=== PATIENT | female | born 1945 | race Caucasian/White ===

== ENCOUNTER 2023-09-15 20:42 | Inpatient (IN) | payer OTHER, SELFPAY ==
[2023-09-15 17:20] VITALS: BP 110/66
[2023-09-15 17:57] VITALS: BMI 26.7
--- NOTE | 2023-09-15 18:02 | EDRN ---
Pt says she thinks she has a urinary infection because she has not been eating or drinking much lately. Pt saw her doctor on Monday and had outpatient blood work and urinalysis done on Monday but not all the results are back yet. Pt denies cp,
sob, abd pain, back pain, fever/chills/cough, weakness, dizziness, burning/pain with urination.
--- NOTE | 2023-09-15 19:23 | ED.GENMED ---
History of Present Illness
General
Chief Complaint: Urinary Symptoms
Source: patient
Exam Limitations: none
Time Seen by Provider: 09/15/23 19:14
Nursing documentation reviewed up to this point in time: agreed with
Travel History
Have you had any contact with someone who has COVID-19?: No
Do you have any symptoms of coronavirus? Fever > 100 degrees, chills, cough, shortness of breath, sore throat, loss of taste or smell, muscle aches, or headache?: No
History of Present Illness
History of Present Illness:
Patient presents to ED secondary to increased urinary frequency along with decreased appetite over the past 3 days. Patient had 1 vomiting episode today, along with diarrhea yesterday. Denies fever or chills. Denies coughing. Denies sore throat.
Denies headache. Per spouse, patient had similar episode last year, when she was admitted and treated for urinary tract infection. Patient had blood work along with urine study performed at [facility] 2 days ago, as ordered by her primary care
physician. Initial urinalysis revealed possible infection. Patient is currently not on any antibiotics.
Review of Systems
Review of Systems
Allergies reviewed?: Yes
All Other Systems: ROS reviewed and negative except as documented in HPI and ROS
Constitutional: Reports no symptoms; Denies fever
EENT: Reports no symptoms
Respiratory: Reports no symptoms
Cardiac: Reports no symptoms
ABD/GI: Reports no symptoms
: Reports frequency; Denies dysuria
Musculoskeletal: Reports no symptoms
Skin: Reports no symptoms
Neurological: Reports no symptoms
Phy Exam
Physical Exam
Physical Exam:
Physical Exam
General: mild distress, not acutely ill. afebrile
Head: nc/at. eomi
Neck: supple. no meningeal signs.
Heart: s1/s2 regular rate and rhythm, no murmur. equal radial pulses.
Lungs: no acute respiratory distress. clear bilaterally
Abdomen: normal bowel sounds. not tender.
Neuro: alert and oriented. no focal neurological deficits
Skin: no rash
Psychiatric: well kept. interactive and cooperative
Extremities: no edema. no calf tenderness.
Course
Orders/Labs/Results
Orders:
Orders
09/15/23 Breakfast
Cholesterol Lowering
At Your Request: Full Participation
Does patient need a safe tray?: No
Cholesterol Lowering: Sodium, 2 Gram
09/15/23 19:40
CMP [Comprehensive Metabolic Panel] Urgent
Complete Blood Count/With Diff Urgent
Lactic Acid Q4H
Comment: CANCEL 2nd LACTIC ACID IF 1st LACTIC ACID IS LESS THAN 2
Magnesium Urgent
Comment: ADD ON
Urinalysis Reflex To Culture Urgent
Date Specimen was Collected: 09/15/23
Time Specimen was Collected: 19:34
Urine Microscopic Reflex Cult Urgent
Blood Culture Q30M
ELDER Source: Blood/Venous
Specimen Description:
Urine Culture Urgent
ELDER Source: U
Specimen Description:
Date Specimen was Collected: 09/15/23
Time Specimen was Collected: 19:34
09/15/23 19:57
Blood Culture Q30M
ELDER Source: Blood/Venous
Specimen Description:
09/15/23 19:58
0.9% Sodium Chloride 1000 ml [Nss] 1,000 ml IV BOLUS
CefTRIAXone [Rocephin] 1,000 mg IV NOW STA
09/15/23 20:24
Admit/Transfer Patient As Directed
Co-Sign Provider:
Level of Care: Inpatient admission
Assign to:: Medical/Surgical
Physician / Group: Navdeep whatley
Diagnosis: UTI
Reason for Hospitalization: UTI
Expected length of stay greater than two midnights?: Yes
ELOS- Estimated Length of Stay in days: 3
I certify the patient meets the requirements for IP care: Yes
09/15/23 20:25
Code Status As Directed
Resuscitation Status: Full Code
09/15/23 22:10
Acetaminophen [Tylenol] 650 mg PO Q4HPRN PRN
Amlodipine [Norvasc] 5 mg PO HS
09/15/23 22:10
Activity As Directed
Activity Level: As Tolerated
Vital Signs As Directed
Frequency: Per unit guidelines
DX Deep Vein Thrombosis Video Routine
09/15/23 22:30
Atorvastatin [Lipitor] 10 mg PO HS
09/16/23 06:00
Basic Metabolic Panel IN AM
Complete Blood Count/No Diff IN AM
09/16/23 08:00
Aspirin Low Dose EC [Aspir Low (Enteric Coated)] 81 mg PO DAILY
Duloxetine Delayed Release [Cymbalta Delayed Release] 20 mg PO DAILY
Lisinopril [Zestril] 40 mg PO DAILY
Meloxicam [Mobic] 7.5 mg PO DAILY
Pantoprazole [Protonix] 40 mg PO DAILY
09/16/23 18:00
Enoxaparin Sodium [Lovenox] 30 mg SC QPM
09/16/23 20:00
CefTRIAXone [Rocephin] 1,000 mg IV Q24H
09/17/23 06:00
Basic Metabolic Panel IN AM
Complete Blood Count/No Diff IN AM
09/18/23 06:00
Basic Metabolic Panel IN AM
Complete Blood Count/No Diff IN AM
09/19/23 06:00
Basic Metabolic Panel IN AM
Complete Blood Count/No Diff IN AM
09/20/23 06:00
Basic Metabolic Panel IN AM
Complete Blood Count/No Diff IN AM
Abnormal Lab Results
09/15/23
19:40
WBC 15.8 H 10^3/uL
(4.8-10.8)
RBC 3.98 L 10^6/uL
(4.20-5.40)
Hgb 11.9 L g/dL
(12.0-16.0)
Hct 34.6 L %
(37.0-47.0)
Abs Immat Gran (auto) 0.1 H 10^3/uL
(0-0.05)
Absolute Neuts (auto) 11.7 H 10^3/uL
(1.4-6.5)
Absolute Monos (auto) 1.4 H 10^3/uL
(0.1-0.6)
Lymphocytes % 12.3 L %
(20.5-51.1)
Sodium 129 L mmol/L
(135-145)
Potassium 3.1 L mmol/L
(3.5-5.1)
Chloride 95 L mmol/L
(98-107)
BUN 29 H mg/dl
(7-17)
Creatinine 1.2 H mg/dL
(0.6-1.0)
Glucose 114 H mg/dl
(70-99)
Magnesium 1.4 L mg/dl
(1.6-2.3)
Ur Occult Blood Reflex 4+ A
(Negative)
Urine Nitrite (Reflex) Positive A
(Negative)
Urine Bilirubin 2+ A
(Negative)
Leukocyte Esterase Rfl 2+ A
(Negative)
Urine RBC >100 A /HPF
(0-2)
Urine WBC (Reflex) >100 A /HPF
(0-5)
Urine Albumin (Reflex) 3+ A
(Neg - Trace)
09/15/23 19:40
09/15/23 19:40
Vital Signs
Initial and Last Documented VS:
Initial Vital Signs
Temp Pulse Resp BP Pulse Ox
98.2 F 92 16 110/66 98
09/15/23 17:20 09/15/23 17:20 09/15/23 17:20 09/15/23 17:20 09/15/23 17:20
Last Documented Vital Signs
Temp Pulse Resp BP Pulse Ox
97.8 F 91 20 147/77 96
09/15/23 22:25 09/15/23 22:51 09/15/23 22:25 09/15/23 22:51 09/15/23 22:25
MDM/Problems Addressed
MDM/Problems Addressed:
Outpatient blood work along with urinalysis and initial preliminary urine culture result noted - gram-negative bacilli identified.
History, exam, and urine test results concerning for recurrent UTI, with clinical concern for development of bacteremia.
Urine culture from March 2023 reviewed and noted. Patient will be started on Rocephin, as patient was able to tolerate cefdinir as an outpatient.
Blood culture pending. Urine culture pending.
*Critical Care Note
Total Time (30-74mins, 75-104mins- exclusive of procedures): Not Applicable
ED Attending Note
-
Portions of this chart may have been created with voice recognition software.� Occasional wrong word or��sound alike� substitutions may have occurred due to the inherent limitations of voice recognition software.
Discharge Plan
Departure
Patient Disposition: Admit
Date of Disposition: 09/15/23
Time of Disposition: 20:05
Admit to: Med/Surg
Presentation/result/management discussed w/ accepting MD/DO: Hospitalist
Discharge Problem:
Acute UTI
Interventions
Interventions:
*Risk Screen - Suicide Last Done: 09/15/23 17:57
*General Assessment Last Done: 09/15/23 17:20
*Neglect/Abuse Screening Last Done: 09/15/23 17:57
ED- Fall Risk Assessment Last Done: 09/15/23 22:00
*ED COVID-19 Vaccine History Last Done: 09/15/23 17:20
*Nursing Disposition Last Done: 09/15/23 22:00
Discharge Date and Time
Discharge Date/Time: 09/15/23 22:00
[2023-09-15 19:52] VITALS: BP 135/67
[2023-09-15 19:52] LABS: % Basophils 0.3 % (0-2); % Eosinophils 4.3 % (0-6); % Immature Granulocytes 0.5 % (0-0.5); % Lymphocytes 12.3 % (20.5-51.1); % Monocytes 8.7 % (1.7-9.3); % Neutrophils 73.9 % (42.2-75.2); Absolute Basophils 0.1 10^3/uL (0-0.2); Absolute Eosinophils 0.7 10^3/uL (0-0.7); Absolute Immature Granulocytes 0.1 10^3/uL (0-0.05); Absolute Monocytes 1.4 10^3/uL (0.1-0.6); Absolute Neutrophils 11.7 10^3/uL (1.4-6.5); Hematocrit 34.6 % (37.0-47.0); Hemoglobin 11.9 g/dL (12.0-16.0); Mean Corp Hgb Conc. 34.4 g/dL (33.0-37.0); Mean Corpuscular Hgb 29.9 pg (27.0-31.0); Mean Corpuscular Volume 86.9 fL (81.0-99.0); Mean Platelet Volume 8.9 fL (7.4-10.4); Nucleated Red Blood Cells % 0 %; Platelet Count 356 10^3/uL (130-400); Red Blood Cell Count 3.98 10^6/uL (4.20-5.40); Red Cell Dist. Width 13.1 % (11.5-14.5); White Blood Cell Count 15.8 10^3/uL (4.8-10.8)
[2023-09-15 20:04] LABS: Lactic Acid 1.7 mmol/L (0.7-2.0)
[2023-09-15 20:06] LABS: Urine Albumin 3+ (Neg - Trace); Urine Bilirubin 2+ (Negative); Urine Character Very Cloudy (Clear); Urine Color Brown; Urine Glucose Negative (Negative); Urine Ketone Negative (Negative); Urine Leukocyte 2+ (Negative); Urine Nitrite Positive (Negative); Urine Occult Blood 4+ (Negative); Urine Specific Gravity 1.015 (<1.030); Urine Urobilinogen Negative (Neg - 1+)
[2023-09-15] MEDS: NSS 1000 IV ×2 (20:06→22:52)
[2023-09-15] MEDS: ROCEPHIN 1000 MG IV (20:07)
--- NOTE | 2023-09-15 20:09 | HPS.HSE ---
Addendum entered and electronically signed by Navdeep Harmon DO 09/15/23 23:49:
I saw and examined the patient.
The PERFORMING [employer] RO[employer] MANAGER's note was reviewed and I agree with the note.
78yo F with PMH HTN/HLD, Gout, Urinary Retention presents to ER with 10 days of urinary frequency. +decreased appetite for 2 weeks. +vomitting today with change in bowel habits - periods of constipation alternating with diarrhea. Pt reports similar
symptomatology to past UTI 03/2023. She followed up [facility] PCP and had urine study performed at [facility]. Reportedly positive GNR for which pt was started on macrobid (not yet started). Denies Fever, chills, dizziness/LH, CP, Palps, wheezing, cough,
dysuria, flank or pelvic pain, calf or leg pain.
ER course: Pt presents with grossly positive UA. Started on rocephin.
GEN: No acute distress, conversant, pleasant
HEENT: anicteric, extraocular movements intact, clear oropharynx without exudates
CV: normal S1/S2, no murmur, rub or gallop
RESP: clear to auscultation bilaterally
GI: soft, non-distended, not tender to palpation, normal active bowel sounds, no hepatosplenomegaly
: No CVA tenderness. No pelvic tenderness. No Martinez
EXT: warm, well perfused, no edema bilaterally
NEURO: AAOx3, non-focal
Recurrent UTI
Leukocytosis
Abdominal Pain / Hx GERD
Hyponatremia
Hypokalemia
Hx HTN/HLD
- Presents afebrile with WBC 15.8K. UA grossly positive. Follow up UCx/Blood Culture
- wbc 15.8. Sepsis not POA. LA 1.7
- Continue rocephin and IVF. hx Aerococcus 03/2023 noted
- Suspect abdominal discomfort and decreased intake 2/2 UTI. Trend with treatment. Prn antiemetics/Tylenol. Follow up Stool Cx.
- Hyponatremia/Hypokalemia 2/2 poor po intake and diarrhea. Replete and trend. S/P 1LNS in ER. Continue NS @ 80cc/hr with goal Na improvement 6-8meq/24hrs.
- Cotinue norvasc/lisinopril/statin
Diet: lipid lowering
PPx: Lovenox
Code Status: Full
Original Note:
Family Physician
-
Family Physician: Nilay Herbert
Chief Complaint
-
urinary frequency
vomiting
diarrhea
History of Present Illness
78 year old with PMH to HTn, HLD, GERD, UTI presented to us with with decreased appetite for past two weeks.� Patient had 1 vomiting episode today, along with diarrhea yesterday.� Denies fever or chills.�denied runny nose nasal congestion, cough.
denied LANE, dizzy or syncopal episode. stated abdominal pain associated with constipation alternating with diarrhea for some months for which they have an appointment with GI next week. stated dysuria. denied hematuria.� Per spouse, patient had
similar episode last year, when she was admitted and treated for urinary tract infection.� Patient had blood work along with urine study performed at [facility] 2 days ago, as ordered by her primary care physician.started on macrobid as outpatient,
which she has not started yet.
positive UA. received iv ceftriaxone in ER. admitting for further management.
Medical History
Past Medical History
Past Medical History: Reports Other
Additional Past Medical History:
htn
hld
GERD
Past Surgical History: Reports Other
Additional Past Surgical History:
back surgery
Social History
Tobacco: Former Smoker
Alcohol: Former
Drug: None
Personal:
Living: With Family
Family History
Family History: Not pertinent
Allergies / Home Medications
Allergies reflects when Allergies were last updated in [employer].
Home Medications with original date entered in [employer]
Allergy/Medication List:
Allergies
Allergy/AdvReac Type Severity Reaction Status Date / Time
amoxicillin [Amoxicillin] Allergy throat Verified 09/15/23 17:25
swelling,
hives
Home Medications
amlodipine 5 mg tablet 5 mg PO HS Blood Pressure 08/30/12
aspirin 81 mg tablet,delayed release 81 mg PO DAILY Blood Clot Prevention/Tx 04/24/23
colchicine 0.6 mg tablet 0.6 mg PO DAILY PRN gout 04/24/23
duloxetine 20 mg capsule,delayed release 20 mg PO DAILY Neurological Condition 04/24/23
etodolac 400 mg tablet 400 mg PO DAILY Anti-Inflammatory 04/24/23
omeprazole 20 mg capsule,delayed release 20 mg PO DAILY Gastrointestinal Issue 04/24/23
simvastatin 20 mg tablet 20 mg PO HS High Cholesterol 04/24/23
therapeutic multivitamin 1 tab PO DAILY Supplement 04/24/23
ascorbic acid (vitamin C) 500 mg tablet (Vitamin C) 500 mg PO DAILY 09/15/23
cholecalciferol (vitamin D3) 10 mcg (400 unit) tablet (Vitamin D3) 10 mcg PO DAILY 09/15/23
cyanocobalamin (vitamin B-12) 500 mcg tablet 500 mcg PO DAILY 09/15/23
ibuprofen 200 mg tablet (Advil) 400 mg PO HS 09/15/23
lisinopril 40 mg tablet 40 mg PO DAILY 09/15/23
Review of Systems
-
Constitutional: Reports No Symptoms
EENT: Reports No Symptoms
Respiratory: Reports No Symptoms
Cardiac: Reports No Symptoms
Abdomen/GI: Reports Abdominal Pain, Nausea, Vomiting and Diarrhea
: Reports Dysuria and Frequency
Musculoskeletal: Reports No Symptoms
Skin: Reports No Symptoms
Neurological: Reports No Symptoms
Endocrine: Reports No Symptoms
Hematologic/Lymphatic: Reports No Symptoms
Psych: Reports No Symptoms
Physical Exam
Vital Signs
Vital Signs
Temp Pulse Resp BP Pulse Ox
98.2 F 66 14 135/67 98
09/15/23 17:20 09/15/23 19:52 09/15/23 19:52 09/15/23 19:52 09/15/23 19:52
Physical Exam
General: Well Developed, Well Nourished and No Apparent Distress
HEENT: NormoCephalic, Moist mucous membranes and Atraumatic
Respiratory: Clear
Cardiac: S1/S2 and Regular Rhythm; No Murmur or Rub
GI: Soft, Non Tender, Non Distended and Normal Bowel Sounds; No Organomegaly
Rectal: Deferred by Provider
Musculoskeletal: No Clubbing, No Cyanosis and No Edema
Skin: No Rash
Neuro: AO x 3 and Nonfocal/grossly intact
Psych: Calm
Laboratory Results
-
09/15/23 19:40
Laboratory Results
Lactic Acid 1.7 mmol/L (0.7-2.0) 09/15/23 19:40
Data Reviewed
-
Lab Data: Labs Reviewed by me
Impression/Plan
-
#recurrent UTI
-wbc 15.8
-urine and blood culture sent from ER
-hxt of Aerococcus UTI
-Tylenol prn for fever, and pain
-iv ceftriaxone
#abdominal pain associated with diarrhea/vomiting
-stool for culture
-vomited once today
-multiple episodes of diarrhea yesterday
#Essential HTN
-BP stable
-continue Norvasc, lisinopril
#acute on chronic hyponatremia/CKD /hypokalemia likely n/v/d
-na 129, k 3.1, cr 1.2
-patient received one liter in ER
-oral kcl
-monitor BMP in am
-normal saline 80cc/hr continued
-
#HLD - statin
#GERD - PPI
#DVT ppx: Lovenox
#Code: Full
[2023-09-15 20:16] LABS: ALT (SGPT) 19 U/L (0-35); AST (SGOT) 31 U/L (14-36); Albumin 3.9 g/dl (3.5-5.0); Alkaline Phosphatase 118 U/L (38-126); Blood Urea Nitrogen 29 mg/dl (7-17); Calcium 9.3 mg/dl (8.4-10.2); Carbon Dioxide 24 mmol/L (22-30); Chloride 95 mmol/L (98-107); Estimated Creatinine Clearance 29 ml/min; Glucose 114 mg/dl (70-99); Potassium 3.1 mmol/L (3.5-5.1); Sodium 129 mmol/L (135-145); Total Bilirubin 0.9 mg/dl (0.2-1.3); Total Protein 6.6 g/dl (6.3-8.2); eGFR 46.05
[2023-09-15 20:29] LABS: Urine Red Blood Cell >100 /HPF (0-2); Urine White Cell >100 /HPF (0-5)
[2023-09-15 21:41] VITALS: BP 129/64
[2023-09-15 22:25] VITALS: BP 147/77; BMI 25.5
[2023-09-15 22:51] LABS: Magnesium 1.4 mg/dl (1.6-2.3)
[2023-09-15] MEDS: NORVASC 5 MG PO (22:51)
[2023-09-15] MEDS: LIPITOR 10 MG PO (22:51)
[2023-09-15] MEDS: KCL ELIXIR 40 MEQ PO (22:52)
--- NOTE | 2023-09-15 23:39 | PTCARENOTE ---
Pt arrived on floor @ 2225. Able to walk into room with limited assistance -- in stable condition and has no current complaints of pain. Oriented to call [place] and room; will continue to monitor.
[2023-09-16 06:29] LABS: Hematocrit 31.1 % (37.0-47.0); Hemoglobin 10.7 g/dL (12.0-16.0); Mean Corp Hgb Conc. 34.4 g/dL (33.0-37.0); Mean Corpuscular Hgb 30.3 pg (27.0-31.0); Mean Corpuscular Volume 88.1 fL (81.0-99.0); Platelet Count 298 10^3/uL (130-400); Red Blood Cell Count 3.53 10^6/uL (4.20-5.40); Red Cell Dist. Width 13.3 % (11.5-14.5); White Blood Cell Count 13.7 10^3/uL (4.8-10.8)
[2023-09-16 06:53] LABS: Blood Urea Nitrogen 27 mg/dl (7-17); Calcium 8.7 mg/dl (8.4-10.2); Carbon Dioxide 24 mmol/L (22-30); Chloride 99 mmol/L (98-107); Estimated Creatinine Clearance 32 ml/min; Glucose 96 mg/dl (70-99); Potassium 3.2 mmol/L (3.5-5.1); Sodium 134 mmol/L (135-145); eGFR 51.11
[2023-09-16 07:55] VITALS: BP 136/61
[2023-09-16] MEDS: PROTONIX 40 MG PO (08:36)
[2023-09-16] MEDS: CYMBALTA DELAYED RELEASE 20 MG PO (08:37)
[2023-09-16] MEDS: ASPIR LOW (ENTERIC COATED) 81 MG PO (08:37)
[2023-09-16] MEDS: ZESTRIL 40 MG PO (08:37)
[2023-09-16] MEDS: VITAMIN D3 (cholecalciferol) 10 MCG PO (08:37)
[2023-09-16] MEDS: MOBIC 7.5 MG PO (08:38)
[2023-09-16] MEDS: VITAMIN B-12 500 MCG PO (08:38)
[2023-09-16] MEDS: NSS 1000 IV (10:53)
--- NOTE | 2023-09-16 11:00 | W.PN.HOSP.TC ---
Today's Communication/Plan
-
see bold
Assessment / Plan
Assessment / Plan
Gen: NAD, awake and alert
Eyes: EOMI, PERRLA, no scleral icterus.
Neck: supple.
CV: RRR, +S1/S2, no m/r/g.
Resp: CTAB, no rales, wheezes, or rhonchi.
Abd: +BS, soft, NT, ND
Skin: No rashes.
Neuro: CN 2-12 intact, non-focal.
Psych: Normal mood and affect.
Recurrent UTI
-Leukocytosis improving
-cont Rocephin
-follow BCx/UCx
-cont IVFs
Other problems:
GERD: cont PPI
Essential HTN: cont Norvasc/lisinopril
HLD: cont statin
Hyponatremia, improving with IVFs
Hypokalemia, 40meq PO K
Hypomagnesemia: 4g IV Mg
FULL/Lovenox
Anticipated Discharge: 24 - 48 hours
Subjective/Interval History
-
Date of Service: September 16, 2023
Denies chest pain or shortness of breath.
Objective Data
-
Labs:
Laboratory Results
09/16/23
06:14
WBC 13.7 H
Hgb 10.7 L
Hct 31.1 L
Plt Count 298
Sodium 134 L
Potassium 3.2 L
Chloride 99
Carbon Dioxide 24
BUN 27 H
Creatinine 1.1 H
Glucose 96
Calcium 8.7
Vital Signs:
Vital Signs
Temp Pulse Resp BP Pulse Ox
97.7 F 70 14 136/61 97
09/16/23 07:55 09/16/23 07:55 09/16/23 07:55 09/16/23 07:55 09/16/23 07:55
I&O
09/15/23 09/16/23 09/17/23
06:59 06:59 06:59
Intake Total 640 / 640
Balance 640 / 640
[2023-09-16] MEDS: KCL ELIXIR 40 MEQ PO (11:21)
[2023-09-16] MEDS: MAGNESIUM SULFATE 100 IV (11:21)
--- NOTE | 2023-09-16 12:20 | PTCARENOTE ---
09/16- Patient is observed in room vomiting into commode. She reports onset of nausea shortly after taking the Potassium elixir. Notified Physician. PRN Nausea medication administered as ordered.
[2023-09-16] MEDS: ZOFRAN 4 MG IV (12:40)
--- NOTE | 2023-09-16 14:13 | CM ---
Patient seen bedside with , Theodore, initial assessment completed. Patient and spouse live together in a two story home, two steps to enter. Patient reports using a stair lift, a cane in the home if needed, and a walker for when she leaves the
home. Patient reports VN in the past, unsure of company, denies SNF. Patient confirms PCP Dr. Herbert, pharmacy used [facility]. CM will continue to follow for discharge planning needs.
Plan; home with spouse, watch for VN needs.
[2023-09-16 15:55] VITALS: BP 136/62
[2023-09-16] MEDS: TUMS 2 TABLET PO (20:01)
[2023-09-16] MEDS: STERILE WATER FOR INJECTION 10 ML IV (20:02)
[2023-09-16] MEDS: ROCEPHIN 1000 MG IV (20:03)
[2023-09-16] MEDS: LIPITOR 10 MG PO (21:06)
[2023-09-16] MEDS: NORVASC 5 MG PO (21:06)
[2023-09-16 23:04] VITALS: BP 116/49
[2023-09-17] MEDS: NSS 1000 IV ×2 (02:54→10:51)
[2023-09-17 07:22] VITALS: BP 126/59
[2023-09-17] MEDS: VITAMIN D3 (cholecalciferol) 10 MCG PO (07:22)
[2023-09-17] MEDS: ASPIR LOW (ENTERIC COATED) 81 MG PO (07:23)
[2023-09-17] MEDS: MOBIC 7.5 MG PO (07:23)
[2023-09-17] MEDS: CYMBALTA DELAYED RELEASE 20 MG PO (07:24)
[2023-09-17] MEDS: ZESTRIL 40 MG PO (07:25)
[2023-09-17] MEDS: PROTONIX 40 MG PO (07:26)
[2023-09-17] MEDS: VITAMIN B-12 500 MCG PO (07:26)
[2023-09-17 07:42] LABS: Hematocrit 30.6 % (37.0-47.0); Hemoglobin 10.2 g/dL (12.0-16.0); Mean Corp Hgb Conc. 33.3 g/dL (33.0-37.0); Mean Corpuscular Hgb 30.2 pg (27.0-31.0); Mean Corpuscular Volume 90.5 fL (81.0-99.0); Mean Platelet Volume 9.3 fL (7.4-10.4); Platelet Count 315 10^3/uL (130-400); Red Blood Cell Count 3.38 10^6/uL (4.20-5.40); Red Cell Dist. Width 13.3 % (11.5-14.5)
[2023-09-17 08:03] LABS: Blood Urea Nitrogen 16 mg/dl (7-17); Carbon Dioxide 23 mmol/L (22-30); Chloride 104 mmol/L (98-107); Estimated Creatinine Clearance 39 ml/min; Glucose 81 mg/dl (70-99); Magnesium 2.1 mg/dl (1.6-2.3); Sodium 132 mmol/L (135-145); eGFR > 60.00
--- NOTE | 2023-09-17 09:56 | CM ---
Patient seen, reports no new concerns at this time. IMM reviewed, signed, placed in patients chart. CM will continue to follow for discharge planning needs.
Plan; home no needs anticipated.
--- NOTE | 2023-09-17 10:55 | PTCARENOTE ---
09/17- Patient reports one new vomiting episode S/P drinking orange juice. She denies any current nausea, but does state some abdominal tenderness. Abd distended/soft/NT, +BSX4; Skin=warm/pale/dry. Notified Physician.
[2023-09-17 13:06] VITALS: BMI 25.5
[2023-09-17] MEDS: KCL 270 MEQ IV (14:20)
--- NOTE | 2023-09-17 14:39 | W.PN.HOSP.TC ---
Today's Communication/Plan
-
antibiotics
Assessment / Plan
Assessment / Plan
CVS: S1-S2 normal
Chest: CTA B/L
Abdomen: Soft, NT / Bowel sounds present
Extremities: No edema, normal pulses
#Recurrent UTI
-Leukocytosis improving
-cont Rocephin
-Urine CX with GNR
-Stop IVFs
-Patient has urinary incontinence and history of large PVR on ultrasound in March 2023
-Check bladder scan to check PVR
-If not getting better may need imaging of the kidneys to rule out stones
# Hypokalemia-replace potassium
# Hypomagnesemia resolved
# Hyponatremia. Stop IV fluids. Check serum and urine osmolality studies
# Change in bowel habits-check x-ray
# Anemia check iron studies
# Gout-ordered on as needed colchicine
#GERD: cont PPI
#Essential HTN: cont Norvasc/lisinopril
#HLD: cont statin
# History of gout-continue colchicine
# History of lumbar laminectomy
# Ex-smoker
# Full code
# DVT prophylaxis-Lovenox
Discussed with at bedside
She has a history of incontinence. She also feels may have a bladder prolapse. I have recommended that she follow-up with Dr. Lizette Rider as outpatient
Anticipated Discharge: 24 - 48 hours
Subjective/Interval History
-
Date of Service: September 17, 2023
Objective Data
-
Labs:
Laboratory Results
09/17/23
06:15
WBC 12.0 H
Hgb 10.2 L
Hct 30.6 L
Plt Count 315
Sodium 132 L
Potassium 3.0 L
Chloride 104
Carbon Dioxide 23
BUN 16
Creatinine 0.9
Glucose 81
Calcium 8.0 L
Vital Signs:
Vital Signs
Temp Pulse Resp BP Pulse Ox
98.1 F 63 12 126/59 99
09/17/23 07:22 09/17/23 07:22 09/17/23 07:22 09/17/23 07:22 09/17/23 07:30
I&O
09/16/23 09/17/23 09/18/23
06:59 06:59 06:59
Intake Total 640 / 640 1859
Balance 640 / 640 1859
[2023-09-17 15:29] VITALS: BP 140/60
[2023-09-17] MEDS: STERILE WATER FOR INJECTION 10 ML IV (20:28)
[2023-09-17] MEDS: ROCEPHIN 1000 MG IV (20:29)
[2023-09-17] MEDS: TUMS 2 TABLET PO (21:16)
[2023-09-17 23:00] VITALS: BP 120/76
[2023-09-17] MEDS: NORVASC 5 MG PO (23:54)
[2023-09-17] MEDS: LIPITOR 10 MG PO (23:55)
[2023-09-18 07:32] VITALS: BP 138/57
[2023-09-18] MEDS: CYMBALTA DELAYED RELEASE 20 MG PO (07:36)
[2023-09-18] MEDS: ASPIR LOW (ENTERIC COATED) 81 MG PO (07:36)
[2023-09-18] MEDS: PROTONIX 40 MG PO (07:36)
[2023-09-18] MEDS: VITAMIN D3 (cholecalciferol) 10 MCG PO (07:36)
[2023-09-18] MEDS: MOBIC 7.5 MG PO (07:36)
[2023-09-18] MEDS: ZESTRIL 40 MG PO (07:36)
[2023-09-18] MEDS: VITAMIN B-12 500 MCG PO (07:36)
[2023-09-18 07:39] LABS: Hematocrit 29.1 % (37.0-47.0); Hemoglobin 9.6 g/dL (12.0-16.0); Mean Corpuscular Volume 87.9 fL (81.0-99.0); Mean Platelet Volume 9.2 fL (7.4-10.4); Platelet Count 298 10^3/uL (130-400); Red Blood Cell Count 3.31 10^6/uL (4.20-5.40); Red Cell Dist. Width 13.3 % (11.5-14.5)
[2023-09-18 08:55] LABS: Blood Urea Nitrogen 12 mg/dl (7-17); Calcium 8.1 mg/dl (8.4-10.2); Carbon Dioxide 25 mmol/L (22-30); Chloride 104 mmol/L (98-107); Estimated Creatinine Clearance 39 ml/min; Glucose 82 mg/dl (70-99); Sodium 134 mmol/L (135-145); eGFR > 60.00
--- NOTE | 2023-09-18 11:16 | W.PN.HOSP.TC ---
Today's Communication/Plan
-
see bold
Assessment / Plan
Assessment / Plan
Gen: NAD, Awake and alert
Eyes: EOMI, PERRLA, no scleral icterus.
Neck: supple.
CV: RRR, +S1/S2, no m/r/g.
Resp: CTAB, no rales, wheezes, or rhonchi.
Skin: No rashes.
Neuro: CN 2-12 intact, non-focal.
Psych: Normal mood and affect.
09/15/23 19:40 Urine Urine Culture - Final
Escherichia coli
09/15/23 19:57 Blood/Venous Blood Culture - Preliminary
No Growth in 48 hours- Final report to follow
09/15/23 19:40 Blood/Venous Blood Culture - Preliminary
No Growth in 48 hours- Final report to follow
Abd Xray: Nonobstructive bowel gas pattern.
Recurrent UTI:
-Leukocytosis now resolved
-UCx with pansensitive E coli, BCxs NGTD
-cont Rocephin
Constipation:
-Dulcolax suppository and mag citrate
Other problems:
Anemia: Check Fe studies
Hypokalemia: 80meq PO K today
Hypomagnesemia, resolved
Hyponatremia. Stop IV fluids. Check serum and urine osmolality studies
GERD: cont PPI
Essential HTN: cont Norvasc/lisinopril
HLD: cont statin
Gout: continue colchicine
FULL/Lovenox
Anticipated Discharge: Within 24 hours
Subjective/Interval History
-
Date of Service: September 18, 2023
Pt c/o constipation. Denies CP/SOB.
Objective Data
-
Labs:
Laboratory Results
09/18/23
06:37
WBC 10.0
Hgb 9.6 L
Hct 29.1 L
Plt Count 298
Sodium 134 L
Potassium 3.0 L
Chloride 104
Carbon Dioxide 25
BUN 12
Creatinine 0.9
Glucose 82
Calcium 8.1 L
Vital Signs:
Vital Signs
Temp Pulse Resp BP Pulse Ox
97.8 F 55 20 138/57 97
09/18/23 07:32 09/18/23 07:36 09/18/23 07:32 09/18/23 07:36 09/18/23 07:32
I&O
09/17/23 09/18/23 09/19/23
06:59 06:59 06:59
Intake Total 1859 1080 / 1080
Output Total 200 / 200
Balance 1859 880 / 880
--- NOTE | 2023-09-18 11:38 | CM ---
Chart reviewed and plan is to home when stable, no needs.
Plan; Home no needs when stable.
[2023-09-18] MEDS: KCL 40 MEQ PO ×2 (11:47→16:13)
[2023-09-18 11:58] LABS: Iron 27 ug/dl (37-170)
[2023-09-18 12:08] LABS: Percent Saturation 13 % (20-50); Total Iron Binding Capacity 203 ug/dl (265-497)
[2023-09-18] MEDS: CITROMA 300 ML PO (12:54)
[2023-09-18 13:14] LABS: Ferritin 19.8 ng/ml (11.1-264.0)
[2023-09-18 15:13] VITALS: BP 139/59
[2023-09-18 16:17] LABS: Glucose - Point of Care 110 mg/dl (70-99)
[2023-09-18] MEDS: ROCEPHIN 1000 MG IV (21:14)
[2023-09-18] MEDS: STERILE WATER FOR INJECTION 10 ML IV (21:14)
[2023-09-18] MEDS: LIPITOR 10 MG PO (22:33)
[2023-09-18] MEDS: NORVASC 5 MG PO (22:33)
[2023-09-18 23:12] VITALS: BP 142/69
[2023-09-19 07:00] VITALS: BP 124/51
[2023-09-19 08:13] LABS: Hematocrit 30.4 % (37.0-47.0); Hemoglobin 10.2 g/dL (12.0-16.0); Mean Corp Hgb Conc. 33.6 g/dL (33.0-37.0); Mean Corpuscular Hgb 29.7 pg (27.0-31.0); Mean Corpuscular Volume 88.6 fL (81.0-99.0); Mean Platelet Volume 8.9 fL (7.4-10.4); Platelet Count 306 10^3/uL (130-400); Red Blood Cell Count 3.43 10^6/uL (4.20-5.40); Red Cell Dist. Width 13.5 % (11.5-14.5); White Blood Cell Count 9.3 10^3/uL (4.8-10.8)
[2023-09-19] MEDS: PROTONIX 40 MG PO (08:19)
[2023-09-19] MEDS: VITAMIN D3 (cholecalciferol) 10 MCG PO (08:19)
[2023-09-19] MEDS: CYMBALTA DELAYED RELEASE 20 MG PO (08:19)
[2023-09-19] MEDS: ZESTRIL 40 MG PO (08:19)
[2023-09-19] MEDS: VITAMIN B-12 500 MCG PO (08:20)
[2023-09-19] MEDS: MOBIC 7.5 MG PO (08:21)
[2023-09-19] MEDS: ASPIR LOW (ENTERIC COATED) 81 MG PO (08:21)
[2023-09-19 08:47] LABS: Blood Urea Nitrogen 16 mg/dl (7-17); Calcium 8.9 mg/dl (8.4-10.2); Carbon Dioxide 30 mmol/L (22-30); Chloride 99 mmol/L (98-107); Estimated Creatinine Clearance 35 ml/min; Glucose 87 mg/dl (70-99); Potassium 4.1 mmol/L (3.5-5.1); Sodium 135 mmol/L (135-145); eGFR 57.31
--- NOTE | 2023-09-19 09:08 | W.PN.HOSP.TC ---
Today's Communication/Plan
-
d/c
Assessment / Plan
Assessment / Plan
Gen: NAD, Awake and alert
Eyes: EOMI, PERRLA, no scleral icterus.
Neck: supple.
CV: remains RRR, +S1/S2, no m/r/g.
Resp: remains CTAB, no rales, wheezes, or rhonchi.
Abd: +BS/soft/NT/ND
Skin: No rashes.
Neuro: CN 2-12 intact, non-focal.
Psych: Normal mood and affect.
09/15/23 19:57 Blood/Venous Blood Culture - Preliminary
No Growth in 72 hours- Final report to follow
09/15/23 19:40 Blood/Venous Blood Culture - Preliminary
No Growth in 72 hours- Final report to follow
09/15/23 19:40 Urine Urine Culture - Final
Escherichia coli
Abd Xray: Nonobstructive bowel gas pattern.
Recurrent UTI:
-Leukocytosis now resolved
-UCx with pansensitive E coli, BCxs NGTD
-s/p 4 days Rocephin, transition to 3 further days of Cipro
Constipation, resolved with dulcolax suppository and mag citrate
Other problems:
Fe def Anemia: Hb stable, start PO Fe.
Hypokalemia, resolved
Hypomagnesemia, resolved
Hyponatremia, resolved
GERD: cont PPI
Essential HTN: cont Norvasc/lisinopril
HLD: cont statin
Gout: continue colchicine
FULL/Lovenox
Total time spent on d/c = 31 min. This included today's physical exam, progress note, review of laboratory and diagnostic data, preparation of discharge documents and prescriptions, and discussions about the pt's hospital course and discharge plan
with the patient and other medical transcriber involved in the patient's care.
Anticipated Discharge: Today
Subjective/Interval History
-
Date of Service: September 19, 2023
No abd pain, had BM. Denies CP/SOB.
Objective Data
-
Labs:
Laboratory Results
09/19/23
07:56
WBC 9.3
Hgb 10.2 L
Hct 30.4 L
Plt Count 306
Sodium 135
Potassium 4.1 D
Chloride 99
Carbon Dioxide 30
BUN 16
Creatinine 1.0
Glucose 87
Calcium 8.9
Vital Signs:
Vital Signs
Temp Pulse Resp BP Pulse Ox
97.8 F 57 16 124/51 96
09/19/23 07:00 09/19/23 07:00 09/19/23 07:00 09/19/23 07:00 09/19/23 07:00
I&O
09/18/23 09/19/23 09/20/23
06:59 06:59 06:59
Intake Total 1080 / 1080 720 / 720
Output Total 200 / 200
Balance 880 / 880 720 / 720
--- NOTE | 2023-09-19 10:24 | CM ---
Patient is for discharge to home today, no needs.
Plan; Home no needs.
[2023-09-19] MEDS: CIPRO 250 MG PO (11:10)
--- NOTE | 2023-09-19 13:27 | W.DCSUMMARY ---
Discharge Summary
Discharge Data
Date of Admission: 09/15/23
Date of Discharge: 09/19/23
-
Pending Results: No
Hospital Course
Primary diagnoses:
Recurrent urinary tract infection
Secondary diagnoses:
Constipation
Iron deficiency anemia
Hypokalemia
Hypomagnesemia
Hyponatremia
Gastroesophageal reflux disease
Essential hypertension
Hyperlipidemia
Gout
Consultants:
None
Imaging:
Abd Xray: Nonobstructive bowel gas pattern.
Hospital course: 78-year-old female who presented with a chief complaint of 10 days of urinary frequency as well as decreased appetite with vomiting as outlined in the H&P done on admission. Patient was found to have urinary tract infection. She
had a leukocytosis. She was placed on IV Rocephin. Her symptoms improved and her leukocytosis resolved. Urine culture grew pansensitive E. coli. She was transition to ciprofloxacin for 3 further days of therapy at the time of discharge.
Discharge Plan
-
Patient Disposition: Home (Routine Discharge)
Discharge Diagnosis/Procedures: Urinary tract infection, hypokalemia
Condition: Good
Diet: No restrictions
Activity: As tolerated
Driving Restrictions: As prior to admission
Referrals:
Nilay Herbert MD [Family Provider] - in less than 1 week
Lizette Rider DO [Active] - (for incontinence)
Prescriptions:
New
ciprofloxacin HCl 250 mg Tablet
250 mg PO BID Qty: 5 0RF
Continued
amlodipine 5 MG tablet
5 mg PO HS
therapeutic multivitamin Tablet
1 tab PO DAILY
aspirin 81 mg Tablet,Delayed Release (Dr/Ec)
81 mg PO DAILY
simvastatin 20 mg Tablet
20 mg PO HS
omeprazole 20 mg Capsule,Delayed Release(Dr/Ec)
20 mg PO DAILY
etodolac 400 mg Tablet
400 mg PO DAILY
colchicine 0.6 mg Tablet
0.6 mg PO DAILYPRN PRN (Reason: gout)
duloxetine 20 mg Capsule,Delayed Release(Dr/Ec)
20 mg PO DAILY
cyanocobalamin (vitamin B-12) 500 mcg Tablet
500 mcg PO DAILY
ascorbic acid (vitamin C) [Vitamin C] 500 mg Tablet
500 mg PO DAILY
lisinopril 40 mg Tablet
40 mg PO DAILY
cholecalciferol (vitamin D3) [Vitamin D3] 10 mcg (400 unit) Tablet
10 mcg PO DAILY
Discontinued
ibuprofen [Advil] 200 mg Tablet
400 mg PO HS
Discharge Orders:
Discharge Patient (As Directed); Ordered 09/19/23
Ordered By: Bruce Marlow
Discharge Date and Time
Discharge Date/Time: 09/19/23 11:47
== END 2023-09-19 11:47 | disposition home or self-care (01) | DRG 690 ==
LOC: 4 WEST ACU 20:42
PROVIDERS: Emergency Medicine; Registered Nurse; ADMITTING PHYSICIAN Internal Medicine; ATTENDING PHYSICIAN Internal Medicine; EMERGENCY PHYSICIAN Emergency Medicine; FAMILY PHYSICIAN Family Medicine
DX: N39.0 Urinary tract infection, site not specified (principal); E87.1 Hypo-osmolality and hyponatremia; I12.9 Hypertensive chronic kidney disease with stage 1 through stage 4 chronic kidney disease, or unspecified chronic kidney disease; N18.9 Chronic kidney disease, unspecified; E78.5 Hyperlipidemia, unspecified; K21.9 Gastro-esophageal reflux disease without esophagitis; Z87.891 Personal history of nicotine dependence; Z87.440 Personal history of urinary (tract) infections; K59.00 Constipation, unspecified; D50.9 Iron deficiency anemia, unspecified; E87.6 Hypokalemia; E83.42 Hypomagnesemia
CPT/HCPCS: 74019; 80048; 80053; 81003; 81015; 82728; 82962; 83540; 83550; 83605; 83735; 85025; 85027; 87040; 87077; 87086; 87186; 96361; 96374; 99284

== ENCOUNTER → 2023-11-13 14:32 | Outpatient (REF) | payer OTHER, SELFPAY | LOC: HWRAD 14:32 | PROVIDERS: ATTENDING PHYSICIAN Internal Medicine | DX: R10.13 Epigastric pain (principal) | CPT/HCPCS: 74177; Q9967 ==

== ENCOUNTER → 2023-12-08 12:36 | Outpatient (REF) | payer OTHER, SELFPAY | LOC: HWRAD 12:36 | PROVIDERS: ATTENDING PHYSICIAN Internal Medicine | DX: R93.5 Abnormal findings on diagnostic imaging of other abdominal regions, including retroperitoneum (principal) | CPT/HCPCS: 76830; 76856 ==

== ENCOUNTER → 2023-12-26 12:53 | Outpatient (REF) | payer OTHER, SELFPAY | LOC: RAD 12:53 | PROVIDERS: ATTENDING PHYSICIAN Surgery Vascular Surgery | DX: I73.9 Peripheral vascular disease, unspecified (principal) | CPT/HCPCS: 93922 ==

== ENCOUNTER → 2024-01-08 14:55 | Outpatient (REF) | payer OTHER, SELFPAY | LOC: HWRAD 14:55 | PROVIDERS: ATTENDING PHYSICIAN Surgery Vascular Surgery; FAMILY PHYSICIAN Internal Medicine | DX: I73.9 Peripheral vascular disease, unspecified (principal) | CPT/HCPCS: 75635; Q9967 ==

== ENCOUNTER 2024-06-10 06:16 | Day surgery (SDC) | payer OTHER, SELFPAY ==
[2024-06-03 13:15] VITALS: BMI 26.5
[2024-06-03 14:15] LABS: Hematocrit 31.2 % (37.0-47.0); Hemoglobin 9.4 g/dL (12.0-16.0); Mean Corp Hgb Conc. 30.1 g/dL (33.0-37.0); Mean Corpuscular Hgb 24.5 pg (27.0-31.0); Mean Corpuscular Volume 81.5 fL (81.0-99.0); Mean Platelet Volume 9.5 fL (7.4-10.4); Platelet Count 366 10^3/uL (130-400); Red Blood Cell Count 3.83 10^6/uL (4.20-5.40); Red Cell Dist. Width 15.2 % (11.5-14.5); White Blood Cell Count 9.9 10^3/uL (4.8-10.8)
[2024-06-03 14:35] LABS: Blood Urea Nitrogen 33 mg/dl (7-17); Calcium 9.8 mg/dl (8.4-10.2); Carbon Dioxide 24 mmol/L (22-30); Chloride 103 mmol/L (98-107); Estimated Creatinine Clearance 27 ml/min; Glucose 119 mg/dl (70-99); Sodium 142 mmol/L (135-145); eGFR 41.57
--- NOTE | 2024-06-04 08:06 | PTCARENOTE ---
Abnormal EKG on 06/03/24. Dr. Acuna aware. No intervention needed.
--- NOTE | 2024-06-06 09:33 | PTCARENOTE ---
Princess @ Dr. Knowles office notified of patients 06/03 Creat 1.3
[2024-06-10] VITALS (12 sets, daily range): BP systolic 102–159; BP diastolic 46–76; BMI 26.5
[2024-06-10] MEDS: Pyridium 200 MG PO (08:37)
--- NOTE | 2024-06-10 14:20 | SUR.PHASEI ---
Dr. Worley notified pt has been in PACU for almost 1.5 hours now. Awake, sat's drop to 86% on RA and come back up to 92-95% on RA. Does not feel SOB, gave her IS, she is clearing her throat frequently she feels like she has something stuck in her
throat. Okay to move to [facility].
== END 2024-06-10 16:30 | disposition home or self-care (01) ==
LOC: SDS 06:16
PROVIDERS: ATTENDING PHYSICIAN Obstetrics & Gynecology; FAMILY PHYSICIAN Internal Medicine
DX: N81.2 Incomplete uterovaginal prolapse (principal); N39.3 Stress incontinence (female) (male); N95.2 Postmenopausal atrophic vaginitis; N36.41 Hypermobility of urethra; N84.1 Polyp of cervix uteri
CPT/HCPCS: 57282; 57260; 57288; 88305; 36415; 80048; 85027; 86850; 86900; 86901; 93005; C1771; J1580

== ENCOUNTER → 2024-07-18 12:51 | Outpatient (REF) | payer OTHER, SELFPAY | LOC: RAD 12:51 | PROVIDERS: ATTENDING PHYSICIAN Surgery Vascular Surgery; FAMILY PHYSICIAN Internal Medicine | DX: I73.9 Peripheral vascular disease, unspecified (principal); I71.40 Abdominal aortic aneurysm, without rupture, unspecified | CPT/HCPCS: 76770; 93922; 93925 ==

== ENCOUNTER 2025-03-21 16:26 | Emergency (ER) | payer OTHER, SELFPAY ==
[2025-03-21] VITALS (16 sets, daily range): BP systolic 136–173; BP diastolic 52–69; BMI 25.8
[2025-03-21 17:03] LABS: Hematocrit 23.3 % (37.0-47.0); Hemoglobin 6.3 g/dL (12.0-16.0); Mean Corp Hgb Conc. 27.0 g/dL (33.0-37.0); Mean Corpuscular Volume 70.2 fL (81.0-99.0); Nucleated Red Blood Cells % 0 %; Platelet Count 356 10^3/uL (130-400); Red Cell Dist. Width 16.9 % (11.5-14.5)
[2025-03-21 17:20] LABS: ALT (SGPT) 11 U/L (0-35); AST (SGOT) 17 U/L (14-36); Albumin 4.1 g/dl (3.5-5.0); Alkaline Phosphatase 80 U/L (38-126); Blood Urea Nitrogen 22 mg/dl (7-17); Calcium 9.0 mg/dl (8.4-10.2); Carbon Dioxide 24 mmol/L (22-30); Chloride 107 mmol/L (98-107); Glucose 149 mg/dl (70-99); Potassium 4.3 mmol/L (3.5-5.1); Sodium 139 mmol/L (135-145); Total Protein 6.3 g/dl (6.3-8.2); eGFR 50.48
--- NOTE | 2025-03-21 19:21 | ED.GENMED ---
History of Present Illness
General
Chief Complaint: Abnormal Lab Value
Source: patient and spouse
Exam Limitations: none
Time Seen by Provider: 03/21/25 19:08
Nursing documentation reviewed up to this point in time: agreed with
History of Present Illness
History of Present Illness:
The patient is an 80-year-old female who presents to the emergency department per her PCP Dr. Gil for blood transfusion following routine blood work yesterday at [facility] showing low Hgb. The patient reports intermittent shortness of breath upon
exertion, describing it as 'a little bit' when exerting herself. She also experiences chronic (about a year) stomach problems, including difficulty with bowel movements leading to constipation and intermittent sensations of nausea with need to retch
and sometimes vomit. The symptoms exacerbate when exposed to certain smells such as at the supermarket. She denies any changes in stool color or urinary issues. The patient reports feeling fatigued. She denies any significant pain other than back
discomfort from sitting, attributed to having a 'bad back.'
She is scheduled to see GI doctor next month.
Past History
Past History
ED Past Medical History: GERD, HTN and Hypercholesterolemia
ED Past Surgical History: Gynecological, Orthopedic (Lumbar laminectomy 2012) and Other (All teeth pulled and dentures placed 3 months ago, uterine 'uplift' 1 year ago.)
Social History
Tobacco: Non-smoker
Alcohol: None
Personal:
Living: with family
Review of Systems
Review of Systems
Allergies reviewed?: Yes
All Other Systems: ROS reviewed and negative except as documented in HPI and ROS
Constitutional: Reports fatigue; Denies fever
Respiratory: Reports trouble breathing (Get a little short of breath with exertion); Denies cough
Cardiac: Denies chest pain
ABD/GI: Reports abdominal pain (Intermittent over past year), nausea, vomiting, constipated and anorexia
: Denies dysuria, frequency or difficulty voiding
Musculoskeletal: Reports no symptoms
Skin: Reports no symptoms
Neurological: Reports no symptoms
Phy Exam
Physical Exam
Physical Exam:
GENERAL: No acute distress. A&Ox3.
CONSTITUTIONAL: Afebrile.
EYES: clear, conjunctivae normal
ENMT: moist mucus membranes, Pharynx nl
RESPIRATORY: Regular respirations, nonlabored, lungs clear.
CARDIOVASCULAR: Regular rate and rhythm, no murmurs, no rubs.
GI: Soft, nontender, normal BS
Rectal: Small amount Brown stool hematest negative
MUSCULOSKELETAL: Moves with ease. Well perfused.
SKIN: Warm, dry, pale
PSYCH: Normal mood and affect. Well kept, interactive and appropriate
NEUROLOGIC: Awake, alert and oriented. No focal neurological deficits
Course
Orders/Labs/Results
Orders:
Orders
03/21/25 16:41
Type+Screen Urgent
Complete Blood Count/With Diff Urgent
Comprehensive Metabolic Panel Urgent
Ferritin Urgent
Comment: ADD ON
Folate Urgent
Comment: ADD ON
Iron Urgent
TSH Reflex To Free T4 Urgent
Comment: ADDON
Total Iron Binding Urgent
Comment: ADD ON
Vitamin B12 Urgent
03/21/25 19:21
* Blood Bank Products Urgent
Blood Bank Products: *Packed RBC Leuko(PRBC's)
Quantity: 2
Transfuse Today: Yes
Reason: Anemia
IV Insert/Care/Rem.- Treatment PRN
03/21/25 19:23
PTT Urgent
Prothrombin Time Urgent
03/21/25 19:29
Add On- LAB Urgent
Tests Added?: TSH reflex to free T4
03/22/25 00:26
Add On- LAB Urgent
Tests Added?: ferritin, iron, total IBC, B12, folate,
Abnormal Lab Results
03/21/25
16:41
RBC 3.32 L 10^6/uL
(4.20-5.40)
Hgb 6.3 L* g/dL
(12.0-16.0)
Hct 23.3 L %
(37.0-47.0)
MCV 70.2 L fL
(81.0-99.0)
MCH 19.0 L pg
(27.0-31.0)
MCHC 27.0 L g/dL
(33.0-37.0)
RDW 16.9 H %
(11.5-14.5)
Absolute Monos (auto) 0.7 H 10^3/uL
(0.1-0.6)
Monocytes % 10.7 H %
(1.7-9.3)
BUN 22 H mg/dl
(7-17)
Creatinine 1.1 H mg/dL
(0.6-1.0)
Glucose 149 H mg/dl
(70-99)
Iron 29 L ug/dl
(37-170)
% Saturation 7 L %
(20-50)
Ferritin 7.1 L ng/ml
(11.1-264.0)
Vitamin B12 > 1000 H pg/ml
(239-931)
Folate > 20.0 H ng/ml
(2.76-20)
Crossmatch IS Only See Detail
03/21/25 16:41
03/21/25 16:41
Vital Signs
Initial and Last Documented VS:
Initial Vital Signs
Temp Pulse Resp BP Pulse Ox
98.3 F 84 20 136/69 97
03/21/25 16:31 03/21/25 16:31 03/21/25 16:31 03/21/25 16:31 03/21/25 16:31
Last Documented Vital Signs
Temp Pulse Resp BP Pulse Ox
98.8 F 75 19 173/62 94
03/22/25 00:00 03/22/25 00:30 03/22/25 00:30 03/22/25 00:00 03/22/25 00:30
MDM/Problems Addressed
Differential Diagnosis Includes:
GI bleed, iron deficiency anemia,
MDM/Problems Addressed:
The patient is an 80-year-old female who presents to the emergency department per her PCP Dr. Gil for blood transfusion following routine blood work yesterday at [facility] showing low Hgb. The patient reports intermittent shortness of breath upon
exertion, describing it as 'a little bit' when exerting herself. She also experiences chronic (about a year) stomach problems, including difficulty with bowel movements leading to constipation and intermittent sensations of nausea with need to retch
and sometimes vomit. The symptoms exacerbate when exposed to certain smells such as at the supermarket. She denies any changes in stool color or urinary issues. The patient reports feeling fatigued. She denies any significant pain other than back
discomfort from sitting, attributed to having a 'bad back.'
She is scheduled to see GI doctor next month.
Afebrile, vital signs stable, NAD
Blood consent signed and scanned into chart
03/22/2025, 12:20 AM
Patient has received 2 units packed red blood cells. No adverse reaction. Stable for discharge.
Iron studies, B12 added to labs
*Pulse Oximetry
SaO2: 97
Oxygen Mode of Delivery: Room air
Patient hypoxic: no
*Critical Care Note
Total Time (30-74mins, 75-104mins- exclusive of procedures): Not Applicable
ED Attending Note
-
Portions of this chart may have been created with voice recognition software.� Occasional wrong word or��sound alike� substitutions may have occurred due to the inherent limitations of voice recognition software.
Discharge Plan
Departure
Patient Disposition: Home (Routine Discharge)
Date of Disposition: 03/22/25
Time of Disposition: 00:24
Patient with high blood pressure during this ER visit?: No
Condition: Good
Discharge Problem:
Anemia
Instructions: Anemia in adults, possibly from low iron - ED (DC)
Prescriptions:
No Action
amlodipine 5 MG tablet
5 mg PO HS
therapeutic multivitamin Tablet
1 tab PO DAILY
aspirin 81 mg Tablet,Delayed Release (Dr/Ec)
81 mg PO DAILY
simvastatin 20 mg Tablet
20 mg PO HS
omeprazole 20 mg Capsule,Delayed Release(Dr/Ec)
20 mg PO DAILY
etodolac 400 mg Tablet
400 mg PO DAILY
colchicine 0.6 mg Tablet
0.6 mg PO DAILYPRN PRN (Reason: gout)
duloxetine 20 mg Capsule,Delayed Release(Dr/Ec)
20 mg PO DAILY
cyanocobalamin (vitamin B-12) 500 mcg Tablet
500 mcg PO DAILY
methenamine hippurate 1 gram Tablet
1 g PO BID
acetaminophen 325 mg Tablet
650 mg PO Q6H PRN (Reason: pain)
Probiotic 3 billion cell Capsule
3,000 mmu cells PO DAILY
potassium chloride 20 mEq Tablet Extended Release
20 meq PO DAILY
cholecalciferol (vitamin D3) [Vitamin D3] 50 mcg (2,000 unit) Capsule
50 mcg PO DAILY
calcium carbonate [Calcarb 600] 600 mg calcium (1,500 mg) Tablet
600 mg PO DAILY
Referrals:
Kristine Gil, DO [Family Provider, Family Practice] - Tomorrow
Activity Restrictions/Additional Instructions:
As we discussed, call your doctor tomorrow and see when they want to see you for follow-up.
Interventions
Interventions:
*Risk Screen - Suicide Last Done: 03/21/25 16:31
*General Assessment Last Done: 03/21/25 16:31
*Neglect/Abuse Screening Last Done: 03/21/25 16:31
*ED- Fall Risk Assessment Last Done: 03/21/25 19:07
*ED COVID-19 Vaccine History Last Done: 03/21/25 19:07
*Nursing Disposition Last Done: 03/22/25 00:45
Discharge Date and Time
Discharge Date/Time: 03/22/25 00:45
Print Language: TUVALUAN
[2025-03-21 19:50] LABS: INR 1.01; PT 13.6 Sec (11.4-14.6)
[2025-03-21 19:51] LABS: APTT 25.8 Sec (23.4-35.0)
--- NOTE | 2025-03-21 20:41 | EDRN ---
Pt assessed for 15 min after initiating blood transfusion (bag 1). B/L breath sounds clear, vital signs stable. Pt denies any symptoms o transfusion reaction. blood administration rate increased at this time.
--- NOTE | 2025-03-21 23:00 | EDRN ---
Pt tolerated second unit of blood, no signs of transfusion reaction, vital signs stable, clear breath sounds B/L. rate increased at this time.
[2025-03-22] VITALS: BP 173/62
[2025-03-22 01:18] LABS: Iron 29 ug/dl (37-170)
[2025-03-22 01:28] LABS: Total Iron Binding Capacity 379 ug/dl (265-497)
[2025-03-22 02:02] LABS: Ferritin 7.1 ng/ml (11.1-264.0)
[2025-03-22 02:33] LABS: Folate > 20.0 ng/ml (2.76-20); Vitamin B12 > 1000 pg/ml (239-931)
== END 2025-03-22 00:45 | disposition home or self-care (01) ==
LOC: EMR 16:26
PROVIDERS: Emergency Medicine; Registered Nurse; EMERGENCY PHYSICIAN Student in an Organized Health Care Education/Training Program; FAMILY PHYSICIAN Family Medicine
DX: D64.9 Anemia, unspecified (principal); I10 Essential (primary) hypertension; E78.00 Pure hypercholesterolemia, unspecified; K21.9 Gastro-esophageal reflux disease without esophagitis
CPT/HCPCS: 99285; 36430; 80053; 82607; 82728; 82746; 83540; 83550; 84443; 85025; 85610; 85730; 86850; 86900; 86901; 86920; P9016

== ENCOUNTER → 2025-04-28 11:15 | Outpatient (REF) | payer OTHER, SELFPAY ==
[2025-04-28 11:35] LABS: Hematocrit 37.7 % (37.0-47.0); Hemoglobin 11.3 g/dL (12.0-16.0); Mean Corp Hgb Conc. 30.0 g/dL (33.0-37.0); Mean Corpuscular Volume 82.7 fL (81.0-99.0); Platelet Count 219 10^3/uL (130-400); Red Cell Dist. Width 26.3 % (11.5-14.5)
== END ==
LOC: OIDL 11:15
PROVIDERS: ATTENDING PHYSICIAN Internal Medicine Hematology & Oncology
DX: D50.8 Other iron deficiency anemias (principal)
CPT/HCPCS: 84100; 85025

== ENCOUNTER 2025-05-30 11:57 | Emergency (ER) | payer OTHER, SELFPAY ==
[2025-05-30 12:02] VITALS: BP 161/75
--- NOTE | 2025-05-30 12:54 | ED.GENMED ---
History of Present Illness
General
Chief Complaint: Musculo-Skeletal Complaint
Source: patient and spouse
Exam Limitations: none
Time Seen by Provider: 05/30/25 12:40
Nursing documentation reviewed up to this point in time: agreed with
History of Present Illness
History of Present Illness:
Note:
CHIEF COMPLAINT(S)
Pain in the legs and back, likely sciatica.
HISTORY OF PRESENT ILLNESS
The patient is an 80-year-old female who presented with leg and back pain that has persisted since Monday. She noted the onset of pain while using a pedal hand sewer shoes at home. The pain is exacerbated by lifting her legs without assistance and is
localized to a specific area in the back and legs. The initial attempt at self-management included the use of Tylenol and therapeutic exercise (a pedal hand sewer shoes), which provided initial relief, but the pain persisted thereafter.
PAST MEDICAL AND SURGICAL HISTORY
The patient reports a history of back surgery, possibly involving lumbar vertebrae three, four, or five which was performed several years ago. She does not have a history of fractures. Recent medical history includes undergoing blood transfusions
and treatment with colchicine for gout, typically affecting the feet.
MEDICATIONS
The patient has been taking Tylenol for her current complaint. She takes colchicine as needed, although she cannot recall its specific indication. She mentioned having recently used a medication for blood transfusion purposes.
ALLERGIES
The patient is allergic to amoxicillin
PHYSICAL EXAM
General: Alert, no acute distress.
Skin: Warm, dry.
Head: Normocephalic, atraumatic.
Neck: Supple, trachea midline.
Eye Ears, nose, mouth and throat: Oral mucosa moist.
Cardiovascular: Normal peripheral perfusion, No edema.
Respiratory: Respirations are non-labored.
Gastrointestinal: Abdomen nondistended
Back: Pain on palpation over the lumbar area, no overt bony deformity noted.
Musculoskeletal: Decreased range of motion due to pain, unable to lift legs without pain.
Neurological: Alert and oriented to person, place, time, and situation, No focal neurological deficit observed.
Psychiatric: Cooperative, appropriate mood & affect.
PROBLEM LIST
Acute Problems:
- Leg and back pain, likely sciatica.
Chronic Problems:
- History of back surgery.
- Gout.
PLAN
The plan includes obtaining an X-ray of the lumbar region to assess for any structural issues. The patient will receive medication for pain management, and Gabapentin will be considered as an option if the patient has not previously used it.
DIFFERENTIAL DIAGNOSIS
The Differential Diagnosis includes, in no particular order and is not limited to:
1. Sciatica
2. Lumbar disc herniation
3. Spinal stenosis
4. Osteoarthritis
5. Lumbar muscle strain
6. Peripheral neuropathy
7. Gout involving atypical sites
8. Iliotibial band syndrome
9. Stress fracture
10. Hip arthritis.
CARE-UPDATE
05/30/25 - 19:49
Patient showed significant improvement after administration of gabapentin and Toradol. No indications of cauda equina syndrome or fractures are present. Left and right hip X-rays are normal. Patient is stable for discharge. Plan to continue
gabapentin treatment and referral to pain management for further evaluation and management of symptoms.
Disposition:
SUMMARY OF ENCOUNTER
The patient, an 80-year-old female, was seen in the emergency department for pain in the legs and back, suspected to be sciatica. The onset occurred after using a pedal hand sewer shoes. Pain management was initially attempted with Tylenol and therapeutic
exercises, which provided only temporary relief. Given her history of back surgery and ongoing gout treatment, there was careful consideration for the appropriate management strategy.
DISPOSITION
The patient is stable for discharge following examination and treatment.
ASSESSMENT
The assessment determined a diagnosis of right-sided sciatica, with no suspicion of malignancy, cauda equina syndrome, or other serious injuries like fractures. Lumbar X-rays were unremarkable, and hip X-rays were normal.
EMERGENCY TREATMENTS ADMINISTERED
Gabapentin and ketorolac (Toradol) were administered during the visit, resulting in significant pain relief.
PLAN
The patient will continue with gabapentin for pain management and is referred to a painting worker for further evaluation and symptom management.
INDEPENDENT REVIEW OF LABS AND INTERPRETATION OF TESTS
- My independent interpretation of the lumbar X-ray is normal with no acute structural abnormalities.
PATIENT EDUCATION AND COUNSELING
The patient was educated about the potential diagnosis of sciatica and instructed on recognizing signs that would require return to the emergency department, such as worsening pain or neurological deficits.
FOLLOW-UP INSTRUCTIONS
The patient is advised to follow up with a painting worker for long-term management of sciatica.
MEDICATION RECONCILIATION
- Gabapentin prescribed for continued home use.
MEDICAL DECISION MAKING
- Complexity of Data Reviewed: Chronic conditions affecting care include the history of back surgery, treatment for gout, and likely sciatica. The differential diagnosis considered sciatica, lumbar disc herniation, spinal stenosis, osteoarthritis,
lumbar muscle strain, peripheral neuropathy, gout (atypical sites), iliotibial band syndrome, stress fracture, and hip arthritis.
- Data:
- Category 1
- My independent interpretation of lumbar X-ray shows normal findings.
- Category 3
- Discussion of management with pain management specialists recommended for further evaluation.
-Risk: Prescription medication was prescribed. Consideration of Admission/Observation: Escalation of care including admission/observation was considered given the complexity and risk of the patients presenting complaint and underlying comorbidities.
However, the patient is deemed safe for outpatient management with close follow-up due to reassuring work-up and symptom control.
DIAGNOSIS
- Sciatica, right side (ICD-10: M54.31)
Past History
Past History
ED Past Medical History: GERD, HTN and Hypercholesterolemia
ED Past Surgical History: Gynecological, Orthopedic (Lumbar laminectomy 2012) and Other (All teeth pulled and dentures placed 3 months ago, uterine 'uplift' 1 year ago.)
Social History
Tobacco: Non-smoker
Alcohol: None
Personal:
Living: with family
Phy Exam
Physical Exam
Physical Exam:
.
Course
Orders/Labs/Results
Orders:
Orders
05/30/25 12:52
Gabapentin [Neurontin] 300 mg PO NOW STA
Ketorolac [Toradol] 15 mg IM NOW STA
Hip, Right 2-3 Views [CR Hip - RT w/wo Pel 2-3 Vw*] Urgent
Comment:
Reason For Exam: right hip/leg pain
Include a pelvis x-ray?: Yes
Vital Signs
Initial and Last Documented VS:
Initial Vital Signs
Temp Pulse Resp BP Pulse Ox
98.4 F 78 16 161/75 98
05/30/25 12:02 05/30/25 12:02 05/30/25 12:02 05/30/25 12:02 05/30/25 12:02
Last Documented Vital Signs
Temp Pulse Resp BP Pulse Ox
98.4 F 71 16 158/79 97
05/30/25 12:02 05/30/25 14:04 05/30/25 14:04 05/30/25 14:04 05/30/25 14:04
*Pulse Oximetry
SaO2: 98
Oxygen Mode of Delivery: Room air
Patient hypoxic: no
*Critical Care Note
Total Time (30-74mins, 75-104mins- exclusive of procedures): Not Applicable
ED Attending Note
-
Portions of this chart may have been created with voice recognition software.� Occasional wrong word or��sound alike� substitutions may have occurred due to the inherent limitations of voice recognition software.
Discharge Plan
Departure
Patient Disposition: Home (Routine Discharge)
Date of Disposition: 05/30/25
Time of Disposition: 14:57
Patient with high blood pressure during this ER visit?: Yes
Condition: Good
Discharge Problem:
Sciatica
Instructions: Sciatica - ED (DC)
Prescriptions:
New
gabapentin 300 mg capsule
300 mg PO TID PRN (Reason: back pain, leg pain) Qty: 30 0RF
No Action
amlodipine 5 MG tablet
5 mg PO HS
therapeutic multivitamin Tablet
1 tab PO DAILY
aspirin 81 mg Tablet,Delayed Release (Dr/Ec)
81 mg PO DAILY
simvastatin 20 mg Tablet
20 mg PO HS
omeprazole 20 mg Capsule,Delayed Release(Dr/Ec)
20 mg PO DAILY
etodolac 400 mg Tablet
400 mg PO DAILY
colchicine 0.6 mg Tablet
0.6 mg PO DAILYPRN PRN (Reason: gout)
duloxetine 20 mg Capsule,Delayed Release(Dr/Ec)
20 mg PO DAILY
cyanocobalamin (vitamin B-12) 500 mcg Tablet
500 mcg PO DAILY
methenamine hippurate 1 gram Tablet
1 g PO BID
acetaminophen 325 mg Tablet
650 mg PO Q6H PRN (Reason: pain)
Probiotic 3 billion cell Capsule
3,000 mmu cells PO DAILY
potassium chloride 20 mEq Tablet Extended Release
20 meq PO DAILY
cholecalciferol (vitamin D3) [Vitamin D3] 50 mcg (2,000 unit) Capsule
50 mcg PO DAILY
calcium carbonate [Calcarb 600] 600 mg calcium (1,500 mg) Tablet
600 mg PO DAILY
Referrals:
Babatunde Shaw DO [Non-Admitting Privileges, Orthopedics] - Call in 1-3 days for appt
Za Gil DO [Family Provider, Family Practice]
Interventions
Interventions:
*Risk Screen - Suicide Last Done: 05/30/25 12:02
*General Assessment Last Done: 05/30/25 12:02
*Neglect/Abuse Screening Last Done: 05/30/25 12:02
*ED- Fall Risk Assessment Last Done: 05/30/25 12:17
*ED COVID-19 Vaccine History Last Done: 05/30/25 12:17
*ED Influenza Vaccine History Last Done: 05/30/25 12:17
*Nursing Disposition Last Done: 05/30/25 15:03
ED-Musculoskeletal Assessment Last Done: 05/30/25 12:16
Discharge Date and Time
Discharge Date/Time: 05/30/25 15:05
Print Language: DIVEHI
[2025-05-30] MEDS: TORADOL 15 MG IM (13:01)
[2025-05-30] MEDS: NEURONTIN 300 MG PO (13:01)
[2025-05-30 14:04] VITALS: BP 158/79
== END 2025-05-30 15:05 | disposition home or self-care (01) ==
LOC: EMR 11:57
PROVIDERS: EMERGENCY PHYSICIAN Emergency Medicine; FAMILY PHYSICIAN Internal Medicine
DX: M54.31 Sciatica, right side (principal); E78.00 Pure hypercholesterolemia, unspecified; I10 Essential (primary) hypertension; Z88.0 Allergy status to penicillin; M10.9 Gout, unspecified; K21.9 Gastro-esophageal reflux disease without esophagitis
CPT/HCPCS: 99283; 96372; 73502